=== PATIENT | male | born 1975 | race Caucasian/White ===

== ENCOUNTER 2018-02-13 21:25 | Emergency (ER) | payer MEDICAID ==
[~2018-02-13] VITALS: Ht 185.4 cm; Wt 145.1 kg
== END 2018-02-13 23:52 | disposition home or self-care (01) ==
LOC: ED 21:25
DX: G43.909 Migraine, unspecified, not intractable, without status migrainosus (principal); Z88.0 Allergy status to penicillin

== ENCOUNTER 2018-05-12 09:56 | Emergency (ER) | payer SELFPAY ==
[~2018-05-12] VITALS: Wt 145.1 kg
== END 2018-05-12 11:39 | disposition home or self-care (01) ==
LOC: ED 09:56
DX: M25.532 Pain in left wrist (principal); G43.909 Migraine, unspecified, not intractable, without status migrainosus; Z88.0 Allergy status to penicillin; Z98.890 Other specified postprocedural states; X58.XXXA Exposure to other specified factors, initial encounter; Y93.89 Activity, other specified; Y92.89 Other specified places as the place of occurrence of the external cause; Y99.8 Other external cause status